=== PATIENT | female | born 1970 | race Caucasian/White ===

== ENCOUNTER → 2016-09-26 | Outpatient (CLI) | payer OTHER ==
--- NOTE | 2016-09-26 10:39 | XR ---
EXAMINATION TYPE: XR KUB DATE OF EXAM: 09/26/2016 9:45 AM COMPARISON: 03/29/2016 INDICATION: Renal stone TECHNIQUE: Single view abdomen FINDINGS: There is a normal bowel gas pattern. Psoas margins are normal. No organomegaly is present. Cholecystectomy clips are in the right upper quadrant. There is a 0.5 cm calcification over the mid t o superior pole left kidney. Additional suspicious calcifications are not identified. IMPRESSION: 1. Left mid 0.5 cm renal calcification.
== END | disposition home or self-care (01) ==
LOC: RADXRMAIN 09:25
PROVIDERS: ATTEND Urology
DX: N28.89 Other specified disorders of kidney and ureter (principal); R10.9 Unspecified abdominal pain
CPT/HCPCS: 74000

== ENCOUNTER → 2017-01-02 | Outpatient (CLI) | payer OTHER ==
--- NOTE | 2017-01-02 08:19 | US ---
EXAMINATION TYPE: US liver DATE OF EXAM: 01/02/2017 COMPARISON: 10/22/2014 CLINICAL HISTORY: Cirrhosis K74.69. GB removed x 2015 EXAM MEASUREMENTS: Liver Length: 20.7 cm CHD: 0.5 cm Right Kidney: 14.3 x 5.8 x 4.9 cm Pancreas: Tail obscured by overlying bowel gas Liver: Heterogenous. Echogenic. No focal lesions seen. Moderate fatty infiltration is present. C ranial caudal dimension is 20.7 cm. Gallbladder: Surgically absent Evidence for sonographic Tanner's sign: neg CHD: wnl Right Kidney: wnl IMPRESSION: 1. Limitation due to bowel gas. 2. Moderate fatty infiltration of the enlarged liver.
[2017-01-02 08:58] LABS: ALT 33 U/L (9-52); AST 22 U/L (14-36); Alkaline Phosphatase 114 U/L (38-126); Anion Gap 9 mmol/L; Blood Urea Nitrogen 10 mg/dL (7-17); Calcium 9.4 mg/dL (8.4-10.2); Carbon Dioxide 28 mmol/L (22-30); Chloride 102 mmol/L (98-107); Glucose 201 mg/dL (74-99); Non-African American GFR(MDRD) >60 (>60 ml/min/1.73 sqM); Sodium 139 mmol/L (137-145); Total Bilirubin 0.6 mg/dL (0.2-1.3); Total Protein 7.1 g/dL (6.3-8.2)
[2017-01-02 09:06] LABS: CH 31.2; CHCM 35.5; HCT 40.5 % (34.0-46.0); HDW 3.07; HGB 14.1 gm/dL (11.4-16.0); MCH 30.8 pg (25.0-35.0); MCHC 34.9 g/dL (31.0-37.0); MCV 88.3 fL (80.0-100.0); Mean Platelet Volume 7.5; RBC 4.59 m/uL (3.80-5.40); RDW 13.4 % (11.5-15.5); WBC 10.4 k/uL (3.8-10.6)
== END | disposition home or self-care (01) ==
LOC: RADUSWWP 07:20
DX: K76.0 Fatty (change of) liver, not elsewhere classified (principal)
CPT/HCPCS: 76705; 80053; 82105; 85027

== ENCOUNTER → 2017-03-01 | Outpatient (CLI) | payer OTHER ==
--- NOTE | 2017-03-01 10:31 | MM ---
Reason for exam: clinical finding. Last mammogram was performed 11 months ago. History: Patient is postmenopausal. Family history of breast cancer in mother at age 58 and breast cancer in maternal cousin. Benign excisional biopsy of the left breast, 2012. Benign excisional biopsy of the right breast, April 25, 2011. Benign US right guided VAD of the right breast, October 13, 2010. Took hormonal contraceptives for 6 months beginning at age 36. Took estrogen for 6 months. Physical Findings: Nurse Summary: 0.25cm nodule in the right breast (nuse dw). MG Diagnostic Mammo w CAD MEEK Bilateral CC, MLO, and XCCL view(s) were taken. Prior study comparison: March 20, 2016, bilateral MG screening mammo w CAD. March 18, 2015, bilateral MG diagnostic mammo w CAD MEEK. March 02, 2014, bilateral MG diagnostic mammo w CAD MEEK. The breast tissue is heterogeneously dense. This may lower the sensitivity of mammography. Finding: There are typically benign diffuse/scattered calcifications in both breasts. There is a chronic nodularity bilaterally. No significant changes in finding since March 20, 2016, March 18, 2015, and March 02, 2014. These results were verbally communicated with the patient and result sheet given to the patient on 03/01/17. ASSESSMENT: Incomplete: need additional imaging evaluation, BI-RAD 0 RECOMMENDATION: Ultrasound of the right breast.
--- NOTE | 2017-03-01 10:33 | USB ---
Reason for exam: additional evaluation requested from abnormal screening. History: Patient is postmenopausal. Family history of breast cancer in mother at age 58 and breast cancer in maternal cousin. Benign excisional biopsy of the left breast, 2012. Benign excisional biopsy of the right breast, April 25, 2011. Benign US right guided VAD of the right breast, October 13, 2010. Took hormonal contraceptives for 6 months beginning at age 36. Took estrogen for 6 months. US Breast Limited RT Right breast ultrasound demonstrates a 0.4 x 0.27 x 0.38cm lesion too small to characterize at 5 o'clock and duct ectasia at the nipple. These results were verbally communicated with the patient and result sheet given to the patient on 03/01/17. ASSESSMENT: Probably benign, BI-RAD 3 RECOMMENDATION: Ultrasound of the right breast in 3 months. (3-6 months)
== END | disposition home or self-care (01) ==
LOC: RADMAMWWP 08:41
PROVIDERS: ATTEND Surgery
DX: N63 Unspecified lump in breast (principal); R92.8 Other abnormal and inconclusive findings on diagnostic imaging of breast
CPT/HCPCS: 76642; G0204

== ENCOUNTER 2017-04-13 15:20 | Emergency (ER) | payer OTHER ==
[2017-04-13 15:24] VITALS: BP 197/85; PULSE 72; RESP 18; TEMP 98.5
--- NOTE | 2017-04-13 15:30 | ED ---
General Adult HPI - General Chief complaint: Eye Problems Stated complaint: Eye Problem Time Seen by Provider: 04/13/17 15:23 Source: patient, RN notes reviewed Mode of arrival: ambulatory Limitations: no limitations - History of Present Illness Initial comments: 46-year-old female sent to the emergency department chief complaint of stye to the right eye. Patient noticed this started this morning. She denies any pain irritation or drainage. She has a pustular injury. She denies any changes in vision. She was concerned due to the bottom so she thought that she should be evaluated. Patient denies any recent fever, chills, shortness of breath, chest pain, back pain, abdominal pain, nausea vomiting, numbness or tingling, dysuria or hematuria, constipation or diarrhea, headaches or visual changes, or any other current symptoms. - Related Data Home Medications Medication Instructions Recorded Confirmed Albuterol Sulfate [Ventolin HFA] 2 puff PO RT-Q6H PRN 01/05/14 04/13/17 Beclomethasone Dipropionate [Qvar 2 puff INHALATION RT-BID 01/05/14 04/13/17 80 mcg/puff] Levothyroxine Sodium [Synthroid] 50 mcg PO QAM 01/05/14 04/13/17 Lisinopril [Lisinopril] 10 mg PO DAILY 01/05/14 04/13/17 glipiZIDE [Glipizide] 5 mg PO QAM 01/05/14 04/13/17 metFORMIN HCL [Glucophage] 500 mg PO DAILY 03/26/14 04/13/17 glipiZIDE [Glucotrol] 2.5 mg PO HS 01/27/15 04/13/17 Naproxen 500 mg PO BID 09/21/15 04/13/17 HYDROcodone/APAP 7.5-325MG [[place] 1 tab PO BID 11/15/15 04/13/17 7.5-325] Sertraline [Zoloft] 50 mg PO DAILY 11/15/15 04/13/17 Albuterol Nebulized [Ventolin 2.5 mg INHALATION RT-Q6H PRN 03/14/16 04/13/17 Nebulized] Aspirin EC [Ecotrin Low Dose] 81 mg PO DAILY 03/14/16 04/13/17 Butalb/APAP/Caff 50-325-40Mg 1 tab PO BID PRN 03/14/16 04/13/17 [Fioricet 50-325-40] Dicyclomine HCl 10 mg PO BID PRN 03/14/16 04/13/17 Ibuprofen [Motrin] 800 mg PO Q8H PRN 03/14/16 04/13/17 Metoprolol Tartrate [Lopressor] 12.5 mg PO BID 03/14/16 04/13/17 Omeprazole [PriLOSEC] 40 mg PO DAILY 03/14/16 04/13/17 Ranitidine HCl 300 mg PO HS 03/14/16 04/13/17 Previous Rx's Medication Instructions Recorded Hydrocodone/Acetaminophen [[place] 1 each PO Q6HR PRN #20 tab 03/14/16 5-325] Ketorolac [Toradol] 10 mg PO Q6HR #20 tab 03/14/16 Ondansetron Odt [Zofran ODT] 4 mg PO Q8HR PRN #20 tab 03/14/16 Tamsulosin HCl [Flomax] 0.4 mg PO DAILY #10 cap 03/14/16 Allergies Allergy/AdvReac Type Severity Reaction Status Date / Time No Known Allergies Allergy Verified 04/13/17 15:24 Review of Systems ROS Statement: Those systems with pertinent positive or pertinent negative responses have been documented in the HPI. ROS Other: All systems not noted in ROS Statement are negative. Past Medical History Past Medical History: COPD, Diabetes Mellitus, Hyperlipidemia, Hypertension, Osteoarthritis (OA), Thyroid Disorder Additional Past Medical History / Comment(s): hx kidney stones, migraines, hx anemia, arthritis, personality/anxiety disorder History of Any Multi-Drug Resistant Organisms: None Reported Past Surgical History: Appendectomy, Breast Surgery, Cholecystectomy, Hysterectomy, Orthopedic Surgery Additional Past Surgical History / Comment(s): surgery left middle finger apputation, breast biopsies, desiree 03/02/15 Past Anesthesia/Blood Transfusion Reactions: No Reported Reaction Past Psychological History: Anxiety, Depression, PTSD Smoking Status: Former smoker Past Alcohol Use History: Rare Past Drug Use History: None Reported - Past Family History Mother Family Medical History: Cancer Additional Family Medical History / Comment(s): breast and lung ca Father Family Medical History: Deep Vein Thrombosis (DVT), Pulmonary Embolus General Exam Limitations: no limitations General appearance: alert, in no apparent distress Head exam: Present: atraumatic, normocephalic, normal inspection Eye exam: Present: PERRL, EOMI. Absent: normal appearance (There is appear to be a hordeolum to the right lower lid.), scleral icterus, conjunctival injection , periorbital swelling Pupils: Present: normal accommodation ENT exam: Present: normal exam, mucous membranes moist Neck exam: Present: normal inspection. Absent: tenderness, meningismus, lymphadenopathy Respiratory exam: Present: normal lung sounds bilaterally. Absent: respiratory distress, wheezes, rales, rhonchi, stridor Cardiovascular Exam: Present: regular rate, normal rhythm, normal heart sounds. Absent: systolic murmur, diastolic murmur, rubs, gallop, clicks Neurological exam: Present: alert, oriented X3 Psychiatric exam: Present: normal affect, normal mood Skin exam: Present: warm, dry, intact, normal color. Absent: rash Course Vital Signs 04/13/17 15:22 Temperature 98.5 F Pulse Rate 72 Respiratory 18 Rate Blood Pressure 197/85 O2 Sat by Pulse 98 Oximetry Medical Decision Making - Medical Decision Making 46. Presents for what appears to be a stye to the right eye. At this time we discussed care follow-up return parameters outpatient family's questions. He stated the Mani management plan. All questions have been answered. They' ll be discharged. Disposition Clinical Impression: Hordeolum of right eye Disposition: HOME SELF-CARE Condition: Stable Instructions: Raquel (ED) Additional Instructions: Please use medication as discussed. Please follow up with family doctor if symptoms have not improved over the next two days. Please return to the emergency room if your symptoms increase or worsen or for any other concerns. Referrals: Sachin Valdivia MD [Primary Care Provider] - 1-2 days Time of Disposition: 15:30
== END 2017-04-13 15:41 | disposition home or self-care (01) ==
LOC: EC 15:20
DX: H00.012 Hordeolum externum right lower eyelid (principal); J44.9 Chronic obstructive pulmonary disease, unspecified; E11.9 Type 2 diabetes mellitus without complications; M19.90 Unspecified osteoarthritis, unspecified site; I10 Essential (primary) hypertension; E07.9 Disorder of thyroid, unspecified; F32.9 Major depressive disorder, single episode, unspecified; F41.9 Anxiety disorder, unspecified; F43.10 Post-traumatic stress disorder, unspecified; Z86.2 Personal history of diseases of the blood and blood-forming organs and certain disorders involving the immune mechanism; Z87.891 Personal history of nicotine dependence; Z79.51 Long term (current) use of inhaled steroids; Z79.84 Long term (current) use of oral hypoglycemic drugs; Z79.1 Long term (current) use of non-steroidal anti-inflammatories (NSAID); Z79.891 Long term (current) use of opiate analgesic; Z79.82 Long term (current) use of aspirin; Z79.899 Other long term (current) drug therapy
CPT/HCPCS: 99283

== ENCOUNTER → 2017-04-20 | Outpatient (CLI) | payer OTHER ==
--- NOTE | 2017-04-20 11:33 | XR ---
EXAMINATION TYPE: XR foot limited RT DATE OF EXAM: 04/20/2017 COMPARISON: NONE HISTORY: Pain fourth digit radiating to ankle TECHNIQUE: 2 view right foot FINDINGS: Hallux valgus deformity is present. Joint spaces are otherwise preserved. There is mild sof t tissue prominence diffusely. Small plantar and Achilles tendon calcaneal heel spurs are present. IMPRESSION: 1. No acute osseous abnormality. 2. Suggestion of minimal soft tissue swelling. 3. Hallux valgus deformity.
== END | disposition home or self-care (01) ==
LOC: RADXRMAIN 10:22
PROVIDERS: ATTEND Internal Medicine
DX: M20.11 Hallux valgus (acquired), right foot (principal); M79.671 Pain in right foot

== ENCOUNTER → 2017-06-04 | Outpatient (CLI) | payer OTHER ==
--- NOTE | 2017-06-05 07:53 | USB ---
Reason for exam: follow-up at short interval from prior study. History: Patient is postmenopausal. Family history of breast cancer in mother at age 58 and breast cancer in maternal cousin. Benign excisional biopsy of the left breast, 2012. Benign excisional biopsy of the right breast, April 25, 2011. Benign US right guided VAD of the right breast, October 13, 2010. Took hormonal contraceptives for 6 months beginning at age 36. Took estrogen for 6 months. Physical Findings: Nurse Summary: pain and palpable x 3 months, pain "constant" palpable 0.5cm, hard, fixed (nurse ariel). US Breast RT Right breast ultrasound includes all four quadrants, the retroareolar region and axilla. Finding demonstrates a 0.4 x 0.4 x 0.2cm oval, hypoechoic lesion at 2 o'clock, probably tiny cyst, a 0.3 x 0.4 x 0.2cm oval, hyperechoic lesion at 2 o'clock, probably tiny lipoma, a 0.4 x 0.5 x 0.3cm oval, cystic lesion at 5 o'clock versus 4 x 4 x 3mm previously, benign, a 0.4 x 0.4 x 0.3cm oval, cystic lesion at 6 o'clock, duct ectasia at 7 o'clock, a 0.7 x 0.9 x 0.9cm oval, cystic lesion at 9 o'clock, largest of cluster, within are of the ducts are some peripheral calcifications which can be reassessed in 6 months, duct ectasia at 10 o'clock, a 0.5 x 0.7 x 0.5cm oval, hyperechoic lesion at 9 o'clock, a node at 8 o'clock, a 1.2 x 0.9 x 0.5cm oval, cyst cluster at 11 o'clock and duct ectasia at the nipple. These results were verbally communicated with the patient and result sheet given to the patient on 06/04/17. ASSESSMENT: Probably benign, BI-RAD 3 RECOMMENDATION: Ultrasound of the right breast in 6 months. (9 o'clock) Manage on a clinical basis with regard to brown nipple discharge. (Suspicious dischage would be clear or bloody spontaneous discharge localized to a single pore on the nipple).
== END | disposition home or self-care (01) ==
LOC: RADUSWWP 13:51
PROVIDERS: ATTEND Surgery
DX: N63.0 Unspecified lump in unspecified breast (principal)

== ENCOUNTER 2017-10-22 16:30 | Emergency (ER) | payer OTHER ==
[2017-10-22 16:46] VITALS: RESP 20; TEMP 97.6
[2017-10-22] MEDS ORDERED: IPRATROPIUM-ALBUTEROL 3 ML NEB INHALATION STA (17:01)
--- NOTE | 2017-10-22 17:18 | ED ---
URI HPI - General Chief Complaint: Upper Respiratory Infection Stated Complaint: Sore throat Time Seen by Provider: 10/22/17 16:43 Source: patient, RN notes reviewed, old records reviewed Mode of arrival: ambulatory Limitations: no limitations - History of Present Illness Initial Comments: This patient is a 47-year-old female with a history of cough and congestion for the past 3 weeks. She was initially started on azithromycin by her primary care provider. She then discontinued that and was started on Levaquin. She's been on Levaquin for the past week. She reports that her cough is continuing to persist. She also states that she now has a very sore throat. She came to emergency department for the worsening sore throat. She also finished a round of steroids. Patient's relates that she has had no recent fever or chills. She reports it's difficult for her to swallow due to the pain in her throat. She denies any significant productive cough at this time. But she does cough quite frequently. She also noted that she saw some white stuff in the back of her throat. - Related Data Home Medications Medication Instructions Recorded Confirmed Albuterol Sulfate [Ventolin HFA] 2 puff PO RT-Q6H PRN 01/05/14 04/13/17 Beclomethasone Dipropionate [Qvar 2 puff INHALATION RT-BID 01/05/14 04/13/17 80 mcg/puff] Levothyroxine Sodium [Synthroid] 50 mcg PO QAM 01/05/14 04/13/17 Lisinopril [Lisinopril] 10 mg PO DAILY 01/05/14 04/13/17 glipiZIDE [Glipizide] 5 mg PO QAM 01/05/14 04/13/17 metFORMIN HCL [Glucophage] 500 mg PO DAILY 03/26/14 04/13/17 glipiZIDE [Glucotrol] 2.5 mg PO HS 01/27/15 04/13/17 Naproxen 500 mg PO BID 09/21/15 04/13/17 HYDROcodone/APAP 7.5-325MG [[place] 1 tab PO BID 11/15/15 04/13/17 7.5-325] Sertraline [Zoloft] 50 mg PO DAILY 11/15/15 04/13/17 Albuterol Nebulized [Ventolin 2.5 mg INHALATION RT-Q6H PRN 03/14/16 04/13/17 Nebulized] Aspirin EC [Ecotrin Low Dose] 81 mg PO DAILY 03/14/16 04/13/17 Butalb/APAP/Caff 50-325-40Mg 1 tab PO BID PRN 03/14/16 04/13/17 [Fioricet 50-325-40] Dicyclomine HCl 10 mg PO BID PRN 03/14/16 04/13/17 Ibuprofen [Motrin] 800 mg PO Q8H PRN 03/14/16 04/13/17 Metoprolol Tartrate [Lopressor] 12.5 mg PO BID 03/14/16 04/13/17 Omeprazole [PriLOSEC] 40 mg PO DAILY 03/14/16 04/13/17 Ranitidine HCl 300 mg PO HS 03/14/16 04/13/17 Previous Rx's Medication Instructions Recorded Hydrocodone/Acetaminophen [[place] 1 each PO Q6HR PRN #20 tab 03/14/16 5-325] Ketorolac [Toradol] 10 mg PO Q6HR #20 tab 03/14/16 Ondansetron Odt [Zofran ODT] 4 mg PO Q8HR PRN #20 tab 03/14/16 Tamsulosin HCl [Flomax] 0.4 mg PO DAILY #10 cap 03/14/16 Levofloxacin [Levaquin] 750 mg PO DAILY #5 tab 10/22/17 predniSONE 50 mg PO DAILY #5 tablet 10/22/17 Allergies Allergy/AdvReac Type Severity Reaction Status Date / Time No Known Allergies Allergy Verified 10/22/17 16:43 Review of Systems ROS Statement: Those systems with pertinent positive or pertinent negative responses have been documented in the HPI. ROS Other: All systems not noted in ROS Statement are negative. Past Medical History Past Medical History: COPD, Diabetes Mellitus, Hyperlipidemia, Hypertension, Osteoarthritis (OA), Thyroid Disorder Additional Past Medical History / Comment(s): hx kidney stones, migraines, hx anemia, arthritis, personality/anxiety disorder History of Any Multi-Drug Resistant Organisms: None Reported Past Surgical History: Appendectomy, Breast Surgery, Cholecystectomy, Hysterectomy, Orthopedic Surgery Additional Past Surgical History / Comment(s): surgery left middle finger apputation, breast biopsies, desiree 03/02/15 Past Anesthesia/Blood Transfusion Reactions: No Reported Reaction Past Psychological History: Anxiety, Depression, PTSD Smoking Status: Former smoker Past Alcohol Use History: Rare Past Drug Use History: None Reported - Past Family History Mother Family Medical History: Cancer Additional Family Medical History / Comment(s): breast and lung ca Father Family Medical History: Deep Vein Thrombosis (DVT), Pulmonary Embolus General Exam - General Exam Comments Initial Comments: 47-year-old female. Alert and oriented. No distress. Limitations: no limitations General appearance: alert, in no apparent distress Head exam: Present: atraumatic, normocephalic, normal inspection Eye exam: Present: normal appearance, PERRL, EOMI. Absent: scleral icterus, conjunctival injection, periorbital swelling ENT exam: Present: normal exam, mucous membranes moist. Absent: normal oropharynx (Pharyngeal erythema. White exudates noted. Difficult to fully examine the patient had a very sensitive gag reflex.) Neck exam: Present: normal inspection. Absent: tenderness, meningismus, lymphadenopathy Respiratory exam: Present: normal lung sounds bilaterally, wheezes (mild wheeze noted. ). Absent: respiratory distress, rales, rhonchi, stridor Cardiovascular Exam: Present: regular rate, normal rhythm, normal heart sounds. Absent: systolic murmur, diastolic murmur, rubs, gallop, clicks GI/Abdominal exam: Present: soft, normal bowel sounds. Absent: distended, tenderness, guarding, rebound, rigid Extremities exam: Present: normal inspection, full ROM, normal capillary refill. Absent: tenderness, pedal edema, joint swelling, calf tenderness Back exam: Present: normal inspection Course Vital Signs 10/22/17 10/22/17 10/22/17 16:44 17:29 17:40 Temperature 97.6 F Pulse Rate 100 96 94 Respiratory 20 Rate Blood Pressure 175/87 O2 Sat by Pulse 96 Oximetry 10/22/17 18:41 Temperature Pulse Rate 96 Respiratory 20 Rate Blood Pressure 186/100 O2 Sat by Pulse 95 Oximetry Medical Decision Making - Medical Decision Making Patient is a 47-year-old female talking to Duong and for many weeks. Was initially started on a Z pack and then switch to Levaquin. This is her last day of Levaquin. She reports that her cough is getting worse and she has the worst sore throat. She does have a very red oropharynx. Cough is been on productive. Chest x-ray was normal. With a sore throat and persistent symptoms we did bloodwork. With blood cell count was within normal limits.She has been on steroids recently. Her strep test is negative. Heterophile is negative. Discuss at this time will put the patient on steroids and continue couple more days of Levaquin for her. She should follow up with primary care provider. All questions answered or return parameters were discussed. - Lab Data Result diagrams: 10/22/17 17:20 10/22/17 17:20 Lab Results 10/22/17 10/22/17 10/22/17 Range/Units 17:20 17:20 17:20 WBC 12.3 H (3.8-10.6) k/uL RBC 5.31 (3.80-5.40) m/uL Hgb 15.7 (11.4-16.0) gm/dL Hct 45.9 (34.0-46.0) % MCV 86.5 (80.0-100.0) fL MCH 29.6 (25.0-35.0) pg MCHC 34.2 (31.0-37.0) g/dL RDW 13.3 (11.5-15.5) % Plt Count 186 (150-450) k/uL Neutrophils % 72 % Lymphocytes % 19 % Monocytes % 3 % Eosinophils % 4 % Basophils % 1 % Neutrophils # 8.9 H (1.3-7.7) k/uL Lymphocytes # 2.4 (1.0-4.8) k/uL Monocytes # 0.4 (0-1.0) k/uL Eosinophils # 0.5 (0-0.7) k/uL Basophils # 0.1 (0-0.2) k/uL Sodium (137-145) mmol/L Potassium (3.5-5.1) mmol/L Chloride (98-107) mmol/L Carbon Dioxide (22-30) mmol/L Anion Gap mmol/L BUN (7-17) mg/dL Creatinine (0.52-1.04) mg/dL Est GFR (CKD-EPI)AfAm (>60 ml/min/1.73 sqM) Est GFR (CKD-EPI)NonAf (>60 ml/min/1.73 sqM) Glucose (74-99) mg/dL Calcium (8.4-10.2) mg/dL Total Bilirubin (0.2-1.3) mg/dL AST (14-36) U/L ALT (9-52) U/L Alkaline Phosphatase (38-126) U/L Total Protein (6.3-8.2) g/dL Albumin (3.5-5.0) g/dL Heterophile Antibody Negative (Negative) Group A Strep Rapid Negative (Negative) 10/22/17 Range/Units 17:20 WBC (3.8-10.6) k/uL RBC (3.80-5.40) m/uL Hgb (11.4-16.0) gm/dL Hct (34.0-46.0) % MCV (80.0-100.0) fL MCH (25.0-35.0) pg MCHC (31.0-37.0) g/dL RDW (11.5-15.5) % Plt Count (150-450) k/uL Neutrophils % % Lymphocytes % % Monocytes % % Eosinophils % % Basophils % % Neutrophils # (1.3-7.7) k/uL Lymphocytes # (1.0-4.8) k/uL Monocytes # (0-1.0) k/uL Eosinophils # (0-0.7) k/uL Basophils # (0-0.2) k/uL Sodium 138 (137-145) mmol/L Potassium 4.2 (3.5-5.1) mmol/L Chloride 97 L (98-107) mmol/L Carbon Dioxide 22 (22-30) mmol/L Anion Gap 19 mmol/L BUN 16 (7-17) mg/dL Creatinine 0.50 L (0.52-1.04) mg/dL Est GFR (CKD-EPI)AfAm >90 (>60 ml/min/1.73 sqM) Est GFR (CKD-EPI)NonAf >90 (>60 ml/min/1.73 sqM) Glucose 281 H (74-99) mg/dL Calcium 10.4 H (8.4-10.2) mg/dL Total Bilirubin 0.4 (0.2-1.3) mg/dL AST 32 (14-36) U/L ALT 45 (9-52) U/L Alkaline Phosphatase 114 (38-126) U/L Total Protein 7.2 (6.3-8.2) g/dL Albumin 4.3 (3.5-5.0) g/dL Heterophile Antibody (Negative) Group A Strep Rapid (Negative) - Radiology Data Radiology results: report reviewed Chest x-ray is negative for any acute process. Disposition Clinical Impression: Pharyngitis, Bronchitis Disposition: HOME SELF-CARE Condition: Good Instructions: Upper Respiratory Infection (ED) Additional Instructions: Continue breathing treatments. Take the medications as prescribed. Follow-up with primary care provider within next 2-3 days. Return to the emergency department if any alarming signs or symptoms occur. Prescriptions: Levofloxacin [Levaquin] 750 mg PO DAILY #5 tab predniSONE 50 mg PO DAILY #5 tablet Referrals: Sachin Valdivia MD [Primary Care Provider] - 1-2 days Time of Disposition: 18:29
[2017-10-22 17:39] LABS: Basophils # (A) 0.1 k/uL (0-0.2); Basophils % (A) 1 %; Eosinophils # (A) 0.5 k/uL (0-0.7); Eosinophils % (A) 4 %; HCT 45.9 % (34.0-46.0); HGB 15.7 gm/dL (11.4-16.0); Lymphocytes # (A) 2.4 k/uL (1.0-4.8); Lymphocytes % (A) 19 %; MCH 29.6 pg (25.0-35.0); MCHC 34.2 g/dL (31.0-37.0); MCV 86.5 fL (80.0-100.0); Mean Platelet Volume 8.1; Monocytes # (A) 0.4 k/uL (0-1.0); Monocytes % (A) 3 %; Neutrophils # (A) 8.9 k/uL (1.3-7.7); Neutrophils % (A) 72 %; Platelet Count 186 k/uL (150-450); RBC 5.31 m/uL (3.80-5.40); RDW 13.3 % (11.5-15.5); WBC 12.3 k/uL (3.8-10.6)
[2017-10-22 17:52] LABS: ALT 45 U/L (9-52); AST 32 U/L (14-36); Albumin 4.3 g/dL (3.5-5.0); Alkaline Phosphatase 114 U/L (38-126); Anion Gap 19 mmol/L; Blood Urea Nitrogen 16 mg/dL (7-17); Calcium 10.4 mg/dL (8.4-10.2); Carbon Dioxide 22 mmol/L (22-30); Chloride 97 mmol/L (98-107); Glucose 281 mg/dL (74-99); Potassium 4.2 mmol/L (3.5-5.1); Sodium 138 mmol/L (137-145); Total Bilirubin 0.4 mg/dL (0.2-1.3); Total Protein 7.2 g/dL (6.3-8.2)
--- NOTE | 2017-10-22 18:06 | XR ---
EXAMINATION TYPE: XR chest 2V DATE OF EXAM: 10/22/2017 COMPARISON: 08/07/2012 HISTORY: Chest pain TECHNIQUE: Frontal and lateral views of the chest are obtained. FINDINGS: Heart and mediastinum are normal. Lungs are clear. Diaphragm is normal. Bony thorax is int act. IMPRESSION: Normal chest. No change.
[2017-10-22 18:43] VITALS: BP 186/100; PULSE 96
== END 2017-10-22 18:42 | disposition home or self-care (01) ==
LOC: EC 16:30
DX: J40 Bronchitis, not specified as acute or chronic (principal); J02.9 Acute pharyngitis, unspecified; J44.9 Chronic obstructive pulmonary disease, unspecified; I10 Essential (primary) hypertension; E11.9 Type 2 diabetes mellitus without complications; M19.90 Unspecified osteoarthritis, unspecified site; E07.9 Disorder of thyroid, unspecified; F32.9 Major depressive disorder, single episode, unspecified; F41.9 Anxiety disorder, unspecified; F43.10 Post-traumatic stress disorder, unspecified; Z87.891 Personal history of nicotine dependence; Z79.1 Long term (current) use of non-steroidal anti-inflammatories (NSAID); Z79.51 Long term (current) use of inhaled steroids; Z79.82 Long term (current) use of aspirin; Z79.84 Long term (current) use of oral hypoglycemic drugs; Z79.899 Other long term (current) drug therapy; Z80.1 Family history of malignant neoplasm of trachea, bronchus and lung
CPT/HCPCS: 36415; 71046; 80053; 85025; 86308; 87081; 87430; 94640; 99284

== ENCOUNTER → 2017-10-23 | Outpatient (CLI) | payer OTHER ==
--- NOTE | 2017-10-23 08:13 | US ---
EXAMINATION TYPE: US liver DATE OF EXAM: 10/23/2017 COMPARISON: 01/02/2017 CLINICAL HISTORY: K74.60 Unspecified cirrhosis of the liver. EXAM MEASUREMENTS: Liver Length: 16.2 cm Gallbladder Wall: Surgically absent cm CBD: 0.6 cm Right Kidney: 12.9 x 4.3 x 5.3 cm Pancreas: visualized portions wnl Liver: difficult to penetrate, with diminished visualization of the portal triads. This is compatibl e with the patient's underlying known hepatocellular disease and limits evaluation for underlying hep atic masses although no discrete masses are seen on today's examination. There is also a nodular cont our noted such as on image [id number]. Gallbladder: Surgically absent CBD: wnl Right Kidney: No hydronephrosis or masses seen IMPRESSION: 1. Sonographic findings compatible with the patient's known hepatocellular disease/hepatic cirrhosis. Although coarsened hepatic echotexture limits evaluation for hepatic masses no focal masses are seen . 2. Surgical absence of the gallbladder.
== END | disposition home or self-care (01) ==
LOC: RADUSWWP 07:43
DX: R93.2 Abnormal findings on diagnostic imaging of liver and biliary tract (principal); Z90.49 Acquired absence of other specified parts of digestive tract
CPT/HCPCS: 76705

== ENCOUNTER → 2017-11-05 | Outpatient (CLI) | payer OTHER ==
--- NOTE | 2017-11-06 08:52 | MR ---
EXAMINATION TYPE: MR lumbar spine wo con DATE OF EXAM: 11/05/2017 9:46 PM COMPARISON: August 27, 2015. HISTORY: Low back pain Multiplanar, MultiSpin echo imaging of the lumbar spine was performed. L1-L2: Normal disc appearance without desiccation. No herniation, protrusion or disc bulging. No ca nal stenosis is present. Foramina are patent bilaterally. L2-L3: Normal disc appearance without desiccation. No herniation, protrusion or disc bulging. No ca nal stenosis is present. Foramina are patent bilaterally. L3-L4: Normal disc appearance without desiccation. No herniation, protrusion or disc bulging. No ca nal stenosis is present. Foramina are patent bilaterally. L4-L5: Mild disc desiccation noted. Stable right paracentral subligamentous disc herniation resulting in right lateral recess stenosis. Mild right foraminal encroachment. Facet joint arthropathy. L5-S1: Normal disc appearance without desiccation. No herniation, protrusion or disc bulging. No ca nal stenosis is present. Foramina are patent bilaterally. Lumbar segments are intact. No paraspinal masses are identified. Conus medullaris has a normal appe arance. Heterogenous bone marrow signal may reflect bone marrow reconversion. Correlate with CBC. IMPRESSION: 1. Bone marrow signal abnormality is stable. See above. 2. Stable right paracentral disc herniation at L4-5.
== END | disposition home or self-care (01) ==
LOC: RADMRIMAIN 20:57
PROVIDERS: ATTEND Psychiatry & Neurology Neurology
DX: M51.26 Other intervertebral disc displacement, lumbar region (principal); R93.7 Abnormal findings on diagnostic imaging of other parts of musculoskeletal system; Z88.2 Allergy status to sulfonamides
CPT/HCPCS: 72148

== ENCOUNTER → 2017-11-22 | Outpatient (CLI) | payer OTHER ==
--- NOTE | 2017-11-22 13:50 | USB ---
Reason for exam: follow-up at short interval from prior study. History: Patient is postmenopausal. Family history of breast cancer in mother at age 58 and breast cancer in maternal cousin. Benign excisional biopsy of the left breast, 2012. Benign excisional biopsy of the right breast, April 25, 2011. Benign US right guided VAD of the right breast, October 13, 2010. Took hormonal contraceptives for 6 months beginning at age 36. Took estrogen for 6 months. Physical Findings: Nurse Summary: 0.5cm small pea sized nodule right breast 6 o'clock (nurse mj). US Breast RT Right breast ultrasound includes all four quadrants, the retroareolar region and axilla. Finding demonstrates duct ectasia at 1 o'clock, 3 o'clock, 5 o'clock, 6 o'clock, 7 o'clock, 8 o'clock, 9 o'clock, 10 o'clock and at posterior nipple, a 0.5 x 0.5 x 0.3cm oval, mixed lesion at 2 o'clock similar to prior 2017, slightly hyperechoic, a 0.5 x 0.3 x 0.3cm oval, solid, hyperechoic lesion at 2 o'clock, similar in size, a 0.3 x 0.4 x 0.3cm oval, cystic lesion at 6 o'clock-unchanged palpable and cystic, calcifications at the 9 o'clock position appear similar to mammogram of 2014 for which a 6 month follow up is recommended, a 0.4 x 0.6 x 0.4cm oval, cystic lesion at 9 o'clock, a 0.9 x 1.0 x 0.6cm oval, complex cystic lesion at 9 o'clock that has grown but appears cystic, a 1.4 x 0.7 x 0.6cm oval, cystic cluster at 11 o'clock and a 0.6 x 0.3 x 0.5cm mixed lesion at 11 o'clock, likely small cluster of cysts. These results were verbally communicated with the patient and result sheet given to the patient on 11/22/17. ASSESSMENT: Probably benign, BI-RAD 3 RECOMMENDATION: Routine screening mammogram of both breasts in 3 months. Back on schedule for February 2018. Ultrasound of both breasts in 6 months.
== END | disposition home or self-care (01) ==
LOC: RADUSWWP 07:55
PROVIDERS: ATTEND Surgery
DX: R92.8 Other abnormal and inconclusive findings on diagnostic imaging of breast (principal)

== ENCOUNTER → 2018-03-06 | Outpatient (CLI) | payer OTHER ==
--- NOTE | 2018-03-07 07:21 | MM ---
Reason for exam: additional evaluation requested from prior study. Last mammogram was performed 1 year ago. History: Patient is postmenopausal. Family history of breast cancer in mother at age 58 and breast cancer in maternal cousin. Benign excisional biopsy of the left breast, 2012. Benign excisional biopsy of the right breast, April 25, 2011. Benign US right guided VAD of the right breast, October 13, 2010. Took hormonal contraceptives for 6 months beginning at age 36. Took estrogen for 6 months. Physical Findings: Nurse Summary: Less than a 1 cm nodule right breast at 6 o'clock. MG Diagnostic Mammo w CAD MEEK Bilateral CC and MLO view(s) were taken. LM and LM with magnification view(s) were taken of the right breast. Prior study comparison: March 01, 2017, bilateral MG diagnostic mammo w CAD MEEK. March 01, 2017, right breast US breast limited RT. March 20, 2016, bilateral MG screening mammo w CAD. March 18, 2015, bilateral MG diagnostic mammo w CAD MEEK. The breast tissue is heterogeneously dense. This may lower the sensitivity of mammography. There are benign round calcifications bilateral breast. New group of hetergeneous calcifications in the right anterior lower inner quadrant. Finding is new when compared to 2017. These results were verbally communicated with the patient and result sheet given to the patient on 03/06/18. ASSESSMENT: Suspicious, BI-RAD 4 RECOMMENDATION: Stereotactic core biopsy of the right breast. Called Dr. Vazquez with mammographic findings and has scheduled an appointment for the patient for 03/12/18 at 4:[address] Vazquez. PRELIMINARY REPORT CALLED AND FAXED TO DR. VAZQUEZ ON 03/06/18.
== END | disposition home or self-care (01) ==
LOC: RADMAMWWP 12:36
PROVIDERS: ATTEND Surgery
DX: R92.8 Other abnormal and inconclusive findings on diagnostic imaging of breast (principal)
CPT/HCPCS: 77066

== ENCOUNTER → 2018-03-21 | Day surgery (SDC) | payer OTHER ==
[2018-03-21 09:43] VITALS: RESP 16; BMI 39.6
[2018-03-21 11:20] VITALS: BP 146/91; PULSE 98; TEMP 98.1
--- NOTE | 2018-03-21 11:32 | P.PCN ---
Date of Procedure: 03/21/18 Preoperative Diagnosis: Abnormal mammogram right breast Postoperative Diagnosis: same Procedure(s) Performed: Right stereotactic breast biopsy with marker placement Anesthesia: local Surgeon: Celeste Vazquez Estimated Blood Loss (ml): 0 Pathology: other (breast tissue) Condition: stable Disposition: other (home) Indications for Procedure: Patient presented with abnormal mammogram with microcalcifications Operative Findings: The area of calcifications was adequately sampled Description of Procedure: The patient's taken to the stereotactic suite where the area of concern is identified and marked by the radiologist. The breast is then prepped. Local anesthetic is instilled into the skin and breast tissue. A skin divya is made. The needle is advanced the appropriate depth. Prefire films were obtained. The area of calcifications was somewhat obscured so a post fire film was not obtained. Multiple vacuum-assisted cores were then obtained. Specimen mammography showed the area of concern to been removed. A tissue marker is then placed and the needles withdrawn. Mammogram shows the marker to be in good placement. Pressure was held and the dressing was applied. I'll see her in the office for follow-up.
--- NOTE | 2018-03-21 12:31 | MM ---
Stereotactic core biopsy left breast. HISTORY: Microcalcifications. The calcifications in question within the left breast were targeted by the undersigned. The examination was performed by the surgeon. Specimen radiograph demonstrates numerous calcifications within the specimen submitted. Post procedural mammogram demonstrates appropriate deployment of radiopaque clip marker. The patient tolerated the procedure well and left the department in stable condition. Pathology results are pending. IMPRESSION: Successful stereotactic core biopsy left breast with pathology results pending. Pathology Results: Benign BREAST, RIGHT, STEREOTACTIC CORE BIOPSY: Nodular calcified fat necrosis with associated fibrosis and chronic inflammation. Negative for malignancy. Recommendation Follow up mammogram of the right breast in 6 months. CATHYD
== END | disposition home or self-care (01) ==
LOC: RADMAMWWP 09:17
PROVIDERS: ATTEND Surgery
DX: N64.1 Fat necrosis of breast (principal); N60.31 Fibrosclerosis of right breast; N61.0 Mastitis without abscess
CPT/HCPCS: 88305; 19081; A4648; J2001

== ENCOUNTER → 2018-05-21 | Outpatient (CLI) | payer OTHER ==
[2018-05-21 07:49] LABS: Basophils % (A) 1 %; Eosinophils # (A) 0.2 k/uL (0-0.7); Eosinophils % (A) 3 %; HCT 41.9 % (34.0-46.0); HGB 14.1 gm/dL (11.4-16.0); Lymphocytes % (A) 16 %; MCH 29.6 pg (25.0-35.0); MCHC 33.6 g/dL (31.0-37.0); Mean Platelet Volume 7.8; Monocytes # (A) 0.3 k/uL (0-1.0); Monocytes % (A) 5 %; Neutrophils # (A) 4.5 k/uL (1.3-7.7); Neutrophils % (A) 74 %; Platelet Count 157 k/uL (150-450); RBC 4.76 m/uL (3.80-5.40); RDW 13.3 % (11.5-15.5); WBC 6.1 k/uL (3.8-10.6)
[2018-05-21 08:15] LABS: ALT 44 U/L (9-52); AST 38 U/L (14-36); Albumin 3.7 g/dL (3.5-5.0); Alkaline Phosphatase 106 U/L (38-126); Anion Gap 10 mmol/L; Blood Urea Nitrogen 9 mg/dL (7-17); Carbon Dioxide 24 mmol/L (22-30); Chloride 104 mmol/L (98-107); Glucose 277 mg/dL (74-99); Potassium 4.1 mmol/L (3.5-5.1); Sodium 138 mmol/L (137-145); Total Bilirubin 0.8 mg/dL (0.2-1.3); Total Protein 6.6 g/dL (6.3-8.2)
--- NOTE | 2018-05-21 09:53 | US ---
EXAMINATION TYPE: US portal vein DATE OF EXAM: 05/21/2018 COMPARISON: US 10/23/2017 CLINICAL HISTORY: K74.60 UNSPECIFIED CIRRHOSIS OF LIVER. EXAM MEASUREMENTS: Liver Length: 20.1 cm Gallbladder Wall: Surgically absent CBD: 0.5 cm Right Kidney: 13.4 x 4.2 x 4.5 cm ANATOMY: Pancreas: Obscured by bowel gas, visualized portions wnl Liver: Attenuating, coarse echotexture correlating to the patient's underlying hepatocellular diseas e. Color flow patency within the portal vein: Yes Portal Vein Flow: Hepatopedal Gallbladder: Surgically absent Evidence for sonographic Tanner's sign: No CBD: wnl as visualized Right Kidney: No hydronephrosis, no cystic or solid mass visualized Ascites noted? No IMPRESSION: Sonographic patency of the portal vein with appropriate hepatopedal flow in a patient wit h underlying hepatocellular disease.
== END | disposition home or self-care (01) ==
LOC: RADUSWWP 06:46
DX: K76.9 Liver disease, unspecified (principal)
CPT/HCPCS: 80053; 82105; 85025; 93976

== ENCOUNTER → 2018-09-23 | Outpatient (CLI) | payer OTHER ==
--- NOTE | 2018-09-23 13:54 | MM ---
Reason for exam: follow-up at short interval from prior study. Last mammogram was performed 7 months ago. History: Patient is postmenopausal. Family history of breast cancer in mother at age 58 and breast cancer in maternal cousin. Benign MG stereo VAD BX RT of the right breast, March 21, 2018. Benign excisional biopsy of the left breast, 2012. Benign excisional biopsy of the right breast, April 25, 2011. Benign US right guided VAD of the right breast, October 13, 2010. Took hormonal contraceptives for 6 months beginning at age 36. Took estrogen for 6 months. Physical Findings: Nurse did not find any significant physical abnormalities on exam. MG Diagnostic Mammo RT w CAD CC, MLO, ML, and XCCL view(s) were taken of the right breast. Prior study comparison: March 06, 2018, bilateral MG diagnostic mammo w CAD MEEK. March 01, 2017, bilateral MG diagnostic mammo w CAD MEEK. March 20, 2016, bilateral MG screening mammo w CAD. March 18, 2015, bilateral MG diagnostic mammo w CAD MEEK. The breast tissue is heterogeneously dense. This may lower the sensitivity of mammography. Benign calcifications in the right breast. No suspicious abnormality. Right biopsy marker noted. These results were verbally communicated with the patient and result sheet given to the patient on 09/23/18. ASSESSMENT: Benign, BI-RAD 2 RECOMMENDATION: Routine screening mammogram of both breasts in 5 months. Back on schedule for February 2019.
== END | disposition home or self-care (01) ==
LOC: RADMAMWWP 12:24
PROVIDERS: ATTEND Surgery
DX: R92.8 Other abnormal and inconclusive findings on diagnostic imaging of breast (principal)
CPT/HCPCS: 77065

== ENCOUNTER → 2018-10-31 | Outpatient (CLI) | payer OTHER ==
[2018-10-31 16:21] LABS: Basophils % (A) 1 %; Eosinophils # (A) 0.2 k/uL (0-0.7); Eosinophils % (A) 2 %; HGB 15.1 gm/dL (11.4-16.0); Lymphocytes # (A) 2.2 k/uL (1.0-4.8); Lymphocytes % (A) 29 %; MCH 29.3 pg (25.0-35.0); MCHC 33.5 g/dL (31.0-37.0); MCV 87.5 fL (80.0-100.0); Mean Platelet Volume 8.3; Monocytes # (A) 0.4 k/uL (0-1.0); Monocytes % (A) 5 %; Neutrophils % (A) 63 %; Platelet Count 190 k/uL (150-450); RBC 5.15 m/uL (3.80-5.40); RDW 13.9 % (11.5-15.5); WBC 7.9 k/uL (3.8-10.6)
[2018-10-31 16:31] LABS: ALT 53 U/L (9-52); AST 41 U/L (14-36); Albumin 4.5 g/dL (3.5-5.0); Alkaline Phosphatase 123 U/L (38-126); Anion Gap 11 mmol/L; Blood Urea Nitrogen 11 mg/dL (7-17); Calcium 9.4 mg/dL (8.4-10.2); Carbon Dioxide 25 mmol/L (22-30); Chloride 102 mmol/L (98-107); Glucose 334 mg/dL (74-99); Sodium 138 mmol/L (137-145); Total Bilirubin 0.5 mg/dL (0.2-1.3); Total Protein 7.2 g/dL (6.3-8.2)
[2018-10-31 18:34] LABS: Appearance,Urine Clear (Clear); Bilirubin,Urine Negative (Negative); Blood,Urine Negative (Negative); Color,Urine Light Yellow; Glucose,Urine (UA) 4+ (Negative); Ketones,Urine Negative (Negative); Leukocyte Esterase,Urine Negative (Negative); Nitrite,Urine Negative (Negative); Protein,Urine Negative (Negative); Urobilinogen,Urine <2.0 mg/dL (<2.0)
[2018-10-31 21:45] LABS: Specific Gravity,Urine 1.015 (1.001-1.035)
--- NOTE | 2018-11-01 09:03 | CT ---
EXAMINATION TYPE: CT abdomen w con DATE OF EXAM: 10/31/2018 HISTORY: Epigastric pain x3 weeks CT DLP: 1886.60mGycm Automated Exposure Control for Dose Reduction was Utilized. CONTRAST: CT scan of the abdomen is performed with IV Contrast, patient injected with 100 mL of Isovue 300. COMPARISON: 03/14/2016 FINDINGS: LUNG BASES: No significant abnormality is appreciated. LIVER/GB: Hepatic parenchyma is diffusely hypoattenuated in comparison to that of the spleen, most co mmonly seen in hepatic steatosis. This finding limits evaluation for hepatic masses. No gross evidenc e of hepatic mass is seen. No intrahepatic biliary ductal dilatation. Gallbladder surgically absent PANCREAS: No significant abnormality is seen. SPLEEN: There is splenomegaly as the spleen measures 14.0 cm in craniocaudal dimension. ADRENALS: No significant abnormality is seen. KIDNEYS: Kidneys enhance and excrete symmetrically without hydronephrosis. BOWEL: There is soft tissue density within the cecum near the ileocecal valve with fluid-filled diste nded terminal ileum. No surrounding inflammatory change. Few scattered diverticula are seen of the po rtions of the visualized descending colon. Moderate amount retained colonic stool is noted. LYMPH NODES: No greater than 1cm abdominal or pelvic lymph nodes are appreciated. OSSEOUS STRUCTURES: Minimal degenerative changes of the spine. IMPRESSION: 1. Soft tissue density in the cecum appears to create ileocecal valve incompetence with fluid-filled prominent terminal ileum. Findings are concerning for cecal mass and could be further evaluated with colonoscopy or CT pelvis with contrast. 2. Moderate degree hepatic steatosis.
== END ==
LOC: RADCTMAIN 15:37
DX: K76.0 Fatty (change of) liver, not elsewhere classified (principal); M79.89 Other specified soft tissue disorders; K74.60 Unspecified cirrhosis of liver
CPT/HCPCS: 80053; 85025; 81003; 82105; 87086; 74160; 36415; Q9967

== ENCOUNTER → 2018-12-09 | Day surgery (SDC) | payer OTHER ==
[2018-12-05 12:09] VITALS: BMI 40.0
[~2018-12-09] MED LIST: LACTATED RINGERS 1,000 ML IV SCH; LIDOCAINE 1% INJ 10MG/ML (20 ML MDV) ONE; PROPOFOL 10 MG/ML 20 ML VIAL IV ONE
[2018-12-09 07:06] VITALS: TEMP 97.7
[2018-12-09 07:13] LABS: Glucose,Whole Blood 183 mg/dL (75-99)
--- NOTE | 2018-12-09 08:56 | P.PCN ---
Date of Procedure: 12/09/18 Description of Procedure: Brief history: Pleasant 48-year-old female with a known history of decompensated cirrhosis who was seen in the clinic for complaints of abdominal pain and altered bowel habits, with reports of loose nonbloody stool. Patient had CT imaging of the abdomen which could not rule out a possible cecal mass. The patient reports episodes of abdominal pain worse with eating. Procedure performed: Esophagogastroduodenoscopy with biopsy Colonoscopy with polypectomy and biopsy Estimated blood loss: Minimal. Preoperative diagnosis: Abdominal pain, history of cirrhosis, change in bowel habits, abnormal CT imaging of the colon Anesthesia: MAC Procedure: After informed consent was obtained from the patient was brought into the endoscopy unit and IV sedation was administered by anesthesia under continuous monitoring. Initially upper endoscopy was done. The Olympus GF 190 video endoscope was inserted inserted into the mouth and esophagus intubated without any difficulty and was gradually advanced into the stomach and duodenum and carefully examined. The bulb and second part of the duodenum appeared normal, with biopsies taken. The scope was then withdrawn into the stomach adequately insufflated with air and upon careful examination the antrum and body, cardia and fundus appeared grossly normal however there was diffuse erythema suggestive of portal hypertensive gastropathy with biopsies of the antrum and body taken. The scope was then withdrawn into the esophagus. A small hiatal hernia was noted. The GE junction was located at 40 cm to the incisors. It appeared regular with no erythema erosions or ulcerations or varices. Rest of the esophagus appeared normal. Patient tolerated the procedure well. At this time the patient continued to remain sedation. Initial digital rectal examination was normal. Olympus CF 190 video colonoscope was then inserted into the rectum and gradually advanced to the cecum without any difficulty. Careful examination was performed as the scope was gradually being withdrawn. The prep was good. The cecum, ascending colon, transverse colon, descending colon, sigmoid colon and rectum appeared normal, with random biopsies taken in the right colon, transverse colon and left colon in the setting of altered bowel movements. Diminutive 2 mm sessile sigmoid polyp removed with cold forcep. Mild scattered pandiverticulosis. Retroflexion was performed in the rectum and no lesions were noted, rectal varices and mild internal hemorrhoids seen. Patient tolerated the procedure well. Impression: 1. Hypertensive gastropathy, antrum and body biopsied. Small hiatal hernia. Duodenal biopsies. 2. Diminutive sigmoid colon removed with cold forceps. Mild pandiverticulosis. Rectal varices. Mild internal hemorrhoids. Recommendations: Findings of this examination were discussed with the patient as well as her [id number]. Okay to resume high-fiber diet. Sodium restricted diet given cirrhosis. Await pathology from biopsies. Follow up with gastroenterology as previously scheduled. Anticipate repeat colonoscopy in 5 years pending pathology from biopsies.
[2018-12-09 09:11] VITALS: BP 137/92; PULSE 79; RESP 16
[2018-12-09 09:11] LABS: Glucose,Whole Blood 171 mg/dL (75-99)
== END | disposition home or self-care (01) ==
LOC: ORWHC2ENDO 06:46
DX: K76.6 Portal hypertension (principal); K31.89 Other diseases of stomach and duodenum; K29.50 Unspecified chronic gastritis without bleeding; K74.60 Unspecified cirrhosis of liver; K64.8 Other hemorrhoids; K57.30 Diverticulosis of large intestine without perforation or abscess without bleeding; I86.8 Varicose veins of other specified sites; D12.5 Benign neoplasm of sigmoid colon; K44.9 Diaphragmatic hernia without obstruction or gangrene; Z90.49 Acquired absence of other specified parts of digestive tract; E78.5 Hyperlipidemia, unspecified; E11.9 Type 2 diabetes mellitus without complications; E07.9 Disorder of thyroid, unspecified; K21.9 Gastro-esophageal reflux disease without esophagitis; Z79.4 Long term (current) use of insulin; Z79.84 Long term (current) use of oral hypoglycemic drugs; Z79.899 Other long term (current) drug therapy; Z79.890 Hormone replacement therapy; Z79.891 Long term (current) use of opiate analgesic
CPT/HCPCS: 81025; 88305; 45380; 43239; J2001; J2704

== ENCOUNTER → 2019-05-07 | Outpatient (CLI) | payer OTHER ==
[2019-05-07 12:27] LABS: INR 0.9 (<1.2); Prothrombin Time 9.9 sec (9.0-12.0)
[2019-05-07 13:24] LABS: Basophils # (A) 0.1 k/uL (0-0.2); Basophils % (A) 2 %; Eosinophils # (A) 0.2 k/uL (0-0.7); Eosinophils % (A) 2 %; HCT 43.5 % (34.0-46.0); HGB 14.9 gm/dL (11.4-16.0); Lymphocytes # (A) 2.7 k/uL (1.0-4.8); Lymphocytes % (A) 36 %; MCH 29.9 pg (25.0-35.0); MCHC 34.3 g/dL (31.0-37.0); MCV 87.3 fL (80.0-100.0); Mean Platelet Volume 7.1; Monocytes # (A) 0.3 k/uL (0-1.0); Monocytes % (A) 5 %; Neutrophils % (A) 54 %; Platelet Count 175 k/uL (150-450); RBC 4.98 m/uL (3.80-5.40); RDW 12.9 % (11.5-15.5); WBC 7.5 k/uL (3.8-10.6)
[2019-05-07 18:41] LABS: African American GFR (CKD) 101.8 (60.0-200.0); Albumin 4.5 g/dL (3.80-4.90); Albumin/Globulin Ratio 2.25 (1.60-3.17); Anion Gap 7.1 mmol/L (4.00-12.00); BUN/Creat Ratio 13.75 Ratio (12.00-20.00); Calcium 9.2 mg/dL (8.7-10.3); Carbon Dioxide 25.9 mmol/L (21.6-31.8); Potassium 4.2 mmol/L (3.5-5.5); Total Bilirubin 0.4 mg/dL (0.3-1.2); Total Protein 6.5 g/dL (6.2-8.2)
== END | disposition home or self-care (01) ==
LOC: LABWHC1 10:54
PROVIDERS: ATTEND Physician Assistant
DX: K74.60 Unspecified cirrhosis of liver (principal)
CPT/HCPCS: 36415; 80053; 82105; 85025; 85610

== ENCOUNTER → 2019-05-07 | Outpatient (CLI) | payer OTHER ==
--- NOTE | 2019-05-07 11:35 | MM ---
Reason for exam: follow-up at short interval from prior study. Last mammogram was performed 7 months ago. History: Patient is postmenopausal. Family history of breast cancer in mother at age 58 and breast cancer in maternal cousin. Benign MG stereo VAD BX RT of the right breast, March 21, 2018. Benign excisional biopsy of the left breast, 2012. Benign excisional biopsy of the right breast, April 25, 2011. Benign US right guided VAD of the right breast, October 13, 2010. Took hormonal contraceptives for 6 months beginning at age 36. Took estrogen for 6 months. Physical Findings: Nurse did not find any significant physical abnormalities on exam. MG Diagnostic Mammo w CAD MEEK Bilateral CC and MLO view(s) were taken. CV view(s) were taken of the left breast. Prior study comparison: September 23, 2018, right breast MG diagnostic mammo RT w CAD. March 06, 2018, bilateral MG diagnostic mammo w CAD MEEK. The breast tissue is heterogeneously dense. This may lower the sensitivity of mammography. Finding: There are stable, fine, grouped/clustered calcifications on right axillary MLO. No significant changes in finding since September 23, 2018 and March 06, 2018. These results were verbally communicated with the patient and result sheet given to the patient on 05/07/19. ASSESSMENT: Benign, BI-RAD 2 RECOMMENDATION: Routine screening mammogram of both breasts in 1 year.
== END | disposition home or self-care (01) ==
LOC: RADMAMWWP 09:42
PROVIDERS: ATTEND Surgery
DX: R92.8 Other abnormal and inconclusive findings on diagnostic imaging of breast (principal)
CPT/HCPCS: 77066

== ENCOUNTER → 2020-01-16 | Outpatient (CLI) | payer OTHER ==
[2020-01-16 08:52] LABS: Basophils # (A) 0.1 k/uL (0-0.2); Basophils % (A) 1 %; Eosinophils # (A) 0.1 k/uL (0-0.7); Eosinophils % (A) 1 %; HCT 49.1 % (34.0-46.0); HGB 16.7 gm/dL (11.4-16.0); Lymphocytes # (A) 3.4 k/uL (1.0-4.8); Lymphocytes % (A) 28 %; MCH 30.1 pg (25.0-35.0); MCV 88.4 fL (80.0-100.0); Mean Platelet Volume 8.3; Monocytes # (A) 0.5 k/uL (0-1.0); Monocytes % (A) 4 %; Neutrophils # (A) 8.1 k/uL (1.3-7.7); Neutrophils % (A) 66 %; Platelet Count 228 k/uL (150-450); RBC 5.55 m/uL (3.80-5.40); WBC 12.2 k/uL (3.8-10.6)
[2020-01-16 08:57] LABS: Prothrombin Time 10.1 sec (9.0-12.0)
[2020-01-16 09:07] LABS: ALT 31 U/L (4-34); AST 20 U/L (14-36); African American GFR (CKD) >90 (>60 ml/min/1.73 sqM); Albumin 4.6 g/dL (3.5-5.0); Alkaline Phosphatase 132 U/L (38-126); Anion Gap 12 mmol/L; Blood Urea Nitrogen 18 mg/dL (7-17); Calcium 9.9 mg/dL (8.4-10.2); Carbon Dioxide 24 mmol/L (22-30); Chloride 101 mmol/L (98-107); Glucose 330 mg/dL (74-99); Non-African American GFR(CKD) >90 (>60 ml/min/1.73 sqM); Potassium 4.6 mmol/L (3.5-5.1); Sodium 137 mmol/L (137-145); Total Bilirubin 0.6 mg/dL (0.2-1.3); Total Protein 7.7 g/dL (6.3-8.2)
--- NOTE | 2020-01-16 15:09 | US ---
EXAMINATION TYPE: US abdomen limited DATE OF EXAM: 01/16/2020 COMPARISON: Ultrasound 10/23/2017 CLINICAL HISTORY: K74.60 Cirrhosis, nonalcoholic. GB removed EXAM MEASUREMENTS: Liver Length: 21.1 cm CBD: 0.6 cm Right Kidney: 11.6 x 4.7 x 4.4 cm Pancreas: Tail obscured by overlying bowel gas Liver: Appears echogenic, coarse and enlarged in size. Gallbladder: Surgically absent Evidence for sonographic Tanner's sign: neg CBD: wnl Right Kidney: No hydronephrosis or masses seen IMPRESSION: 1. Hepatomegaly with mild to moderate fatty infiltration..
== END | disposition home or self-care (01) ==
LOC: RADUSWWP 08:20
PROVIDERS: ATTEND Internal Medicine Gastroenterology
DX: R16.0 Hepatomegaly, not elsewhere classified (principal); K76.0 Fatty (change of) liver, not elsewhere classified; K74.60 Unspecified cirrhosis of liver
CPT/HCPCS: 76705; 80053; 82105; 85025; 85610

== ENCOUNTER → 2020-02-05 | Outpatient (CLI) | payer OTHER ==
--- NOTE | 2020-02-05 10:58 | MM ---
Reason for exam: clinical finding. Last mammogram was performed 9 months ago. History: Patient is postmenopausal. Family history of breast cancer in mother at age 58 and breast cancer in maternal cousin. Benign MG stereo VAD BX RT of the right breast, March 21, 2018. Benign excisional biopsy of the left breast, 2012. Benign excisional biopsy of the right breast, April 25, 2011. Benign US right guided VAD of the right breast, October 13, 2010. Took hormonal contraceptives for 6 months beginning at age 36. Took estrogen for 6 months. Physical Findings: Nurse Summary: 0.5cm nodule in the right breast at 5 o'clock (nurse mj). MG Diagnostic Mammo w CAD MEEK Bilateral CC and MLO view(s) were taken. XCCL and CV view(s) were taken of the right breast. Prior study comparison: May 07, 2019, bilateral MG diagnostic mammo w CAD MEEK. September 23, 2018, right breast MG diagnostic mammo RT w CAD. No significant new findings when compared with previous films. These results were verbally communicated with the patient and result sheet given to the patient on 02/05/20. ASSESSMENT: Incomplete: need additional imaging evaluation, BI-RAD 0 RECOMMENDATION: Ultrasound of the right breast.
--- NOTE | 2020-02-05 10:59 | USB ---
Reason for exam: additional evaluation requested from abnormal screening. History: Patient is postmenopausal. Family history of breast cancer in mother at age 58 and breast cancer in maternal cousin. Benign MG stereo VAD BX RT of the right breast, March 21, 2018. Benign excisional biopsy of the left breast, 2012. Benign excisional biopsy of the right breast, April 25, 2011. Benign US right guided VAD of the right breast, October 13, 2010. Took hormonal contraceptives for 6 months beginning at age 36. Took estrogen for 6 months. US Breast Limited RT Right limited breast ultrasound including focal area of concern, retroareolar and axilla demonstrates a 0.4 x 0.3 x 0.3cm cystic lesion at 5 o'clock. These results were verbally communicated with the patient and result sheet given to the patient on 02/05/20. ASSESSMENT: Benign, BI-RAD 2 RECOMMENDATION: Routine screening mammogram of both breasts in 1 year.
== END | disposition home or self-care (01) ==
LOC: RADMAMWWP 09:30
PROVIDERS: ATTEND Surgery
DX: N63.10 Unspecified lump in the right breast, unspecified quadrant (principal); R92.8 Other abnormal and inconclusive findings on diagnostic imaging of breast
CPT/HCPCS: 77066

== ENCOUNTER → 2020-05-03 | Outpatient (CLI) | payer OTHER ==
--- NOTE | 2020-05-03 18:56 | US ---
EXAMINATION TYPE: US pelvic complete DATE OF EXAM: 05/03/2020 COMPARISON: CT 10/31/2018 CLINICAL HISTORY: 49-year-old female Left lower R10.32 pain, Left flank pain R10.9. Uterus and left o vary surgically absent per patient TECHNIQUE: Transabdominal sonographic images of the pelvis were acquired. FINDINGS: EXAM MEASUREMENTS: Uterus: Surgically absent Right Ovary: Not visualized on this exam Left Ovary: Surgically absent 1. Uterus: Surgically absent 2. Endometrium: Surgically absent 3. Right Ovary: Not visualized on this exam 4. Left Ovary: Surgically absent 5. Bilateral Adnexa: wnl, large amount of peristalsing bowel visualized bilaterally. 6. Posterior cul-de-sac: wnl IMPRESSION: 1. Status post hysterectomy. Status post left oophorectomy. 2. The right ovary could not be visualized. 3. No pelvic free fluid. Peristalsing bowel visualized within the bilateral adnexa.
--- NOTE | 2020-05-03 19:01 | US ---
EXAMINATION TYPE: US kidneys/renal and bladder DATE OF EXAM: 05/03/2020 COMPARISON: CT 10/31/2018 CLINICAL HISTORY: 49-year-old female Left lower R10.32 pain, Left flank pain R10.9. EXAM MEASUREMENTS: Right Kidney: 16.7 x 5.2 x 5.7 cm Left Kidney: 13.3 x 4.7 x 4.3 cm No hydronephrosis on either side. Bladder: wnl as visualized Bilateral Jets seen: Yes Echogenic hepatic parenchyma. IMPRESSION: No hydronephrosis. Echogenic hepatic parenchyma suggesting fatty infiltration of the liver.
== END | disposition home or self-care (01) ==
LOC: RADUSWWP 14:13
PROVIDERS: ATTEND Internal Medicine
DX: R93.2 Abnormal findings on diagnostic imaging of liver and biliary tract (principal); R10.32 Left lower quadrant pain; Z90.710 Acquired absence of both cervix and uterus; Z90.721 Acquired absence of ovaries, unilateral
CPT/HCPCS: 76770; 76856

== ENCOUNTER → 2020-05-20 | Outpatient (CLI) | payer OTHER ==
[2020-05-20 10:18] LABS: African American GFR (CKD) >90 (>60 ml/min/1.73 sqM); Blood Urea Nitrogen 13 mg/dL (7-17); Non-African American GFR(CKD) >90 (>60 ml/min/1.73 sqM)
--- NOTE | 2020-05-20 14:10 | CT ---
EXAMINATION TYPE: CT abdomen pelvis w con DATE OF EXAM: 05/20/2020 COMPARISON: 10/31/2018 HISTORY: 49-year-old female pain bilateral lower quadrants TECHNIQUE: Contiguous axial scanning of the abdomen and pelvis following administration of 100 ml Iso demond 300 IV contrast. Delayed images through the kidneys and coronal/sagittal reconstructions perform ed. CT DLP: 2684.2 mGycm Automated exposure control for dose reduction was used. FINDINGS: Heart normal size without pericardial effusion. Lung bases clear without pleural effusion. Liver enlarged at 22.7 cm with diffuse low attenuation compatible with fatty infiltration. Portal radha ous system is patent. No biliary ductal dilatation. Cholecystectomy clips. Adrenal glands, kidneys, and pancreas within normal limits. Spleen enlarged at 14.1 cm on coronal series. No dilated small bowel, free fluid, or free air. No mesenteric or retroperitoneal lymphadenopathy. Oral contrast has progressed to the splenic flexure. There is mild stool burden. Circumferential wall thickening of the mid to distal sigmoid and rectum may be due to incomplete distention. No pericolon ic inflammatory change. Bladder is urine distended. Uterus surgically absent. Left-sided pelvic phleboliths. Right ovary is v isualized. Left ovary not clearly seen. No abnormal fluid collection in the pelvis or pelvic lymphade nopathy. Bones: Mild degenerative change of the hips. Facet arthropathy lower lumbar spine. Trace grade 1 ante rolisthesis L4-L5. IMPRESSION: 1. HEPATOMEGALY (22.7 CM) WITH HEPATIC STEATOSIS. 2. MILD SPLENOMEGALY OF 14.1 CM. 3. SOME CIRCUMFERENTIAL WALL THICKENING OF THE MID TO DISTAL SIGMOID AND RECTUM MAY BE DUE TO INCOMPL ETE DISTENTION OR NONSPECIFIC MILD COLITIS. CLINICALLY CORRELATE.
== END | disposition home or self-care (01) ==
LOC: RADCTMAIN 09:33
PROVIDERS: ATTEND Internal Medicine
DX: K76.0 Fatty (change of) liver, not elsewhere classified (principal); K63.89 Other specified diseases of intestine; R10.31 Right lower quadrant pain; R16.2 Hepatomegaly with splenomegaly, not elsewhere classified
CPT/HCPCS: 82565; 84520; 74177; 36415; Q9967

== ENCOUNTER 2021-06-28 12:24 | Emergency (ER) | payer OTHER ==
--- NOTE | 2021-06-28 14:59 | ED ---
General Adult HPI - General Chief complaint: Upper Respiratory Infection Stated complaint: watery eye/vomiting/cough Time Seen by Provider: 06/28/21 14:43 Source: patient Mode of arrival: ambulatory Limitations: no limitations - History of Present Illness Initial comments: Dictation was produced using [employer] dictation software. please excuse any gr ammatical, word or spelling errors. Chief Complaint: 50-year-old female presents to the emergency department for cough, watery eyes and vomiting History of Present Illness: Patient is a 50-year-old female she is vaccinated for covered. She received the vaccines earlier this year. Patient states that for the last week or so she's been having symptoms of watery eyes, dry cough and malaise. Patient states that she stays at home. She has multiple comorbidities including COPD, diabetes hypertension dyslipidemia. No obvious sick contacts. He denies any fevers. No abdominal pain. The ROS documented in this emergency department record has been reviewed and confirmed by me. Those systems with pertinent positive or negative responses have been documented in the HPI. All other systems are other negative and/or noncontributory. PHYSICAL EXAM: General Impression: Alert and oriented x3, not in acute distress HEENT: Normocephalic atraumatic, extra-ocular movements intact, pupils equal and reactive to light bilaterally, mucous membranes moist. Cardiovascular: Heart regular rate and rhythm Chest: Able to complete full sentences, no retractions, no tachypnea Musculoskeletal: no peripheral edema Motor: no focal deficits noted Neurological: CN II-XII grossly intact, no focal motor or sensory deficits noted Skin: Intact with no visualized rashes Psych: Normal affect and mood ED course: 50-year-old female presents to the emergency department for cough and associated constitutional symptoms. Heart rate on arrival was 112. Patient is not hypoxic. Patient guallpa virus positive. She is vaccinated. Discussed risk and benefits of monoclonal antibody effusion. Patient's agreeable. Observed in the emergency department after infusion. She is stable for discharge. - Related Data Home Medications Medication Instructions Recorded Confirmed Albuterol Sulfate [Ventolin HFA] 2 puff PO RT-Q6H PRN 01/05/14 04/08/19 Beclomethasone Dipropionate [Qvar 2 puff INHALATION RT-BID 01/05/14 04/08/19 80 mcg/puff] Levothyroxine Sodium [Synthroid] 50 mcg PO QAM 01/05/14 04/08/19 metFORMIN HCL [Glucophage] 1,000 mg PO BID 03/26/14 04/08/19 glipiZIDE [Glucotrol] 10 mg PO BID 01/27/15 04/08/19 Naproxen 500 mg PO BID 09/21/15 04/08/19 HYDROcodone/APAP 7.5-325MG [Lindsay 1 tab PO BID 11/15/15 04/08/19 7.5-325] Sertraline [Zoloft] 50 mg PO DAILY 11/15/15 04/08/19 Albuterol Nebulized [Ventolin 2.5 mg INHALATION RT-Q6H PRN 03/14/16 04/08/19 Nebulized] Dicyclomine HCl 10 mg PO BID PRN 03/14/16 04/08/19 Metoprolol Tartrate [Lopressor] 25 mg PO BID 03/14/16 04/08/19 Ranitidine HCl 300 mg PO HS 03/14/16 04/08/19 Aspirin/Acetaminophen/Caffeine 2 each PO BID PRN 03/15/18 04/08/19 [Excedrin Migraine Caplet] Insulin Glargine,Hum.rec.anlog 20 unit SQ HS 03/15/18 04/08/19 [Basaglar Kwikpen U-100] Oxybutynin Chloride [Ditropan] 5 mg PO BID 03/21/18 04/08/19 Verapamil HCl [Verapamil ER] 120 mg PO DAILY 03/21/18 04/08/19 Hydrocodone/Acetaminophen [Lindsay 1 tab PO Q12H 12/05/18 04/08/19 7.5-325] Insulin Lispro [Admelog] 100 unit SQ PC-TID PRN 12/05/18 04/08/19 Previous Rx's Medication Instructions Recorded Ondansetron Odt [Zofran ODT] 4 mg PO Q8HR PRN #20 tab 03/14/16 Tamsulosin HCl [Flomax] 0.4 mg PO DAILY #10 cap 03/14/16 Allergies Allergy/AdvReac Type Severity Reaction Status Date / Time No Known Allergies Allergy Verified 04/08/19 10:57 Review of Systems ROS Statement: Those systems with pertinent positive or pertinent negative responses have been documented in the HPI. ROS Other: All systems not noted in ROS Statement are negative. Past Medical History Past Medical History: COPD, Diabetes Mellitus, GERD/Reflux, Hyperlipidemia, Hypertension, Osteoarthritis (OA), Thyroid Disorder Additional Past Medical History / Comment(s): hx kidney stones, migraines, hx anemia, FATTY LIVER" History of Any Multi-Drug Resistant Organisms: None Reported Past Surgical History: Appendectomy, Breast Surgery, Cholecystectomy, Hysterectomy, Orthopedic Surgery Additional Past Surgical History / Comment(s): surgery left middle finger apputation, breast biopsies, Past Anesthesia/Blood Transfusion Reactions: No Reported Reaction Past Psychological History: Anxiety, Depression, PTSD Past Alcohol Use History: Rare Past Drug Use History: None Reported - Past Family History Mother Family Medical History: Cancer Additional Family Medical History / Comment(s): breast and lung ca Father Family Medical History: Deep Vein Thrombosis (DVT), Pulmonary Embolus General Exam Limitations: no limitations Course Vital Signs 06/28/21 13:02 Temperature 97.8 F Pulse Rate 112 H Respiratory 20 Rate Blood Pressure 160/75 O2 Sat by Pulse 97 Oximetry Medical Decision Making - Lab Data Lab Results 06/28/21 Range/Units 13:08 Coronavirus (PCR) Detected A (Not Detectd) Disposition Clinical Impression: COVID Disposition: HOME SELF-CARE Condition: Fair Instructions (If sedation given, give patient instructions): Coronavirus Disease 2019 (COVID-19) Is patient prescribed a controlled substance at d/c from ED?: No Referrals: Aidee Flowers MD [Primary Care Provider] - 1-2 days
[2021-06-28] MEDS ORDERED: SODIUM CHLORIDE 0.9% 50 ML IVPB ONE (15:30)
[2021-06-28] MEDS ORDERED: SOTROVIMAB (EUA) 500 MG in SODIUM CHLORIDE 0.9% 100 ML IVPB ONE (15:30)
[2021-06-28 17:22] VITALS: BP 134/76; PULSE 80; RESP 18; TEMP 98
== END 2021-06-28 17:22 | disposition home or self-care (01) ==
LOC: EC 12:24
DX: U07.1 COVID-19 (principal); J44.9 Chronic obstructive pulmonary disease, unspecified; E11.9 Type 2 diabetes mellitus without complications; E78.5 Hyperlipidemia, unspecified; I10 Essential (primary) hypertension; M19.90 Unspecified osteoarthritis, unspecified site; G43.909 Migraine, unspecified, not intractable, without status migrainosus; F41.9 Anxiety disorder, unspecified; F32.A Depression, unspecified; F43.10 Post-traumatic stress disorder, unspecified
CPT/HCPCS: 87635; 99284; Q0247

== ENCOUNTER → 2021-08-05 | Outpatient (CLI) | payer OTHER ==
[2021-08-05 13:52] LABS: Prothrombin Time 10.4 sec (9.0-12.0)
[2021-08-05 20:16] LABS: Basophils # (A) 0.05 X 10*3/uL (0.00-0.10); Basophils % (A) 0.6 %; Eosinophils # (A) 0.18 X 10*3/uL (0.04-0.35); Eosinophils % (A) 2.2 %; HCT 44.3 % (37.2-46.3); HGB 14.2 g/dL (12.0-15.0); Lymphocytes # (A) 2.53 X 10*3/uL (0.90-5.00); Lymphocytes % (A) 30.5 %; MCH 28.7 pg (27.0-32.0); MCHC 32.1 g/dL (32.0-37.0); MCV 89.5 fL (80.0-97.0); Monocytes # (A) 0.61 X 10*3/uL (0.20-1.00); Monocytes % (A) 7.3 %; Neutrophils # (A) 4.86 X 10*3/uL (1.80-7.70); Neutrophils % (A) 58.6 %; Platelet Count 203 X 10*3/uL (140-440); RBC 4.95 X 10*6/uL (4.10-5.20); RDW 13.2 % (11.5-14.5)
[2021-08-05 21:34] LABS: African American GFR (CKD) 119.4 (60.0-200.0); Albumin 4.3 g/dL (3.8-4.9); Albumin/Globulin Ratio 1.62 (1.60-3.17); Anion Gap 9.7 mmol/L (10.00-18.00); BUN/Creat Ratio 13.44 Ratio (12.00-20.00); Blood Urea Nitrogen 8.9 mg/dL (9.0-27.0); Calcium 9.4 mg/dL (8.7-10.3); Carbon Dioxide 27.1 mmol/L (20.0-27.5); Globulin 2.7 g/dL (1.6-3.3); Non-African American GFR(CKD) 103.1 (60.0-200.0); Potassium 4.4 mmol/L (3.5-5.5); Total Bilirubin 0.3 mg/dL (0.30-1.20); Uric Acid 3.1 mg/dL (2.9-7.7)
[2021-08-06 00:23] LABS: Erythrocyte Sedimentation Rate 13 mm/Hr (0-20)
[2021-08-06 04:12] LABS: DNA Double-Stranded NEGATIVE (NEGATIVE)
[2021-08-06 11:39] LABS: HLA B27 NEGATIVE
== END | disposition home or self-care (01) ==
LOC: LABWHC1 12:53
PROVIDERS: ATTEND Orthopaedic Surgery
DX: K74.60 Unspecified cirrhosis of liver (principal); M25.50 Pain in unspecified joint
CPT/HCPCS: 36415; 80053; 82105; 84550; 85025; 85610; 85652; 86038; 86225; 86431; 86812

== ENCOUNTER → 2021-08-05 | Outpatient (CLI) | payer OTHER ==
--- NOTE | 2021-08-05 19:20 | XR ---
EXAMINATION TYPE: XR chest 2V DATE OF EXAM: 08/05/2021 COMPARISON: 10/22/2017, 06/08/2021 HISTORY: 51-year-old female with cough TECHNIQUE: Frontal and lateral views FINDINGS: Heart normal size. Aorta and pulmonary vasculature within normal limits. Some strandy atelectasis in the lower lungs. Otherwise, no consolidation or pleural effusion. IMPRESSION: Some strandy left basilar atelectasis. Otherwise, no acute process seen.
== END | disposition home or self-care (01) ==
LOC: RADXRMAIN 12:38
PROVIDERS: ATTEND Internal Medicine
DX: J98.11 Atelectasis (principal)
CPT/HCPCS: 71046

== ENCOUNTER → 2021-10-17 | Outpatient (CLI) | payer OTHER ==
--- NOTE | 2021-10-17 10:11 | US ---
EXAMINATION TYPE: US liver DATE OF EXAM: 10/17/2021 COMPARISON: NONE CLINICAL HISTORY: 51-year-old female K74.60 CIRRHOSIS OF LIVER. TECHNIQUE: Multiple sonographic images of the right upper quadrant are obtained. FINDINGS: EXAM MEASUREMENTS: Liver Length: 19.9 cm Gallbladder: Surgically absent CBD: 0.4 cm Right Kidney: 13.0 x 4.6 x 5.8 cm Pancreas: Tail obscured by overlying bowel gas. Visualized portions show no gross organomegaly. Liver: attenuating, difficult to penetrate, decreased visualization as vessels, enlarged. No focal l esion seen. Gallbladder: Surgically absent Evidence for sonographic Tanner's sign: no CBD: wnl Right Kidney: No hydronephrosis. IMPRESSION: 1. At least moderate hepatic steatosis versus other hepatocellular disease. No focal lesion seen. 2. Status post cholecystectomy. No biliary ductal dilatation.
[2021-10-17 14:37] LABS: Basophils # (A) 0.08 X 10*3/uL (0.00-0.10); Basophils % (A) 0.9 %; Eosinophils # (A) 0.19 X 10*3/uL (0.04-0.35); Eosinophils % (A) 2.1 %; HCT 44.6 % (37.2-46.3); HGB 14.4 g/dL (12.0-15.0); Immature Grans, Automated 1.1 %; Lymphocytes # (A) 2.77 X 10*3/uL (0.90-5.00); MCH 29.4 pg (27.0-32.0); MCHC 32.3 g/dL (32.0-37.0); Mean Platelet Volume 11.1 fL (9.5-12.2); Monocytes # (A) 0.64 X 10*3/uL (0.20-1.00); Monocytes % (A) 6.9 %; NRBC Per 100 WBC 0 /100 WBCS (0.0-0.0); Neutrophils # (A) 5.45 X 10*3/uL (1.80-7.70); Platelet Count 202 X 10*3/uL (140-440); WBC 9.23 X 10*3/uL (4.50-10.00)
[2021-10-17 15:16] LABS: INR 0.89 (0.90-1.11); Prothrombin Time 10.1 sec (9.9-11.9)
[2021-10-17 15:17] LABS: African American GFR (CKD) 121.2 (60.0-200.0); Albumin 4.4 g/dL (3.8-4.9); Albumin/Globulin Ratio 1.84 (1.60-3.17); BUN/Creat Ratio 20.95 Ratio (12.00-20.00); Blood Urea Nitrogen 13.2 mg/dL (9.0-27.0); Calcium 9.4 mg/dL (8.7-10.3); Carbon Dioxide 23.2 mmol/L (20.0-27.5); Globulin 2.4 g/dL (1.6-3.3); Non-African American GFR(CKD) 104.6 (60.0-200.0); Potassium 4.3 mmol/L (3.5-5.5); Total Bilirubin 0.3 mg/dL (0.30-1.20); Total Protein 6.8 g/dL (6.2-8.2)
== END | disposition home or self-care (01) ==
LOC: RADUSWWP 07:50
PROVIDERS: ATTEND Internal Medicine Gastroenterology
DX: K74.60 Unspecified cirrhosis of liver (principal); Z90.49 Acquired absence of other specified parts of digestive tract
CPT/HCPCS: 76705; 80053; 82105; 85025; 85610

== ENCOUNTER → 2024-08-26 | Outpatient (CLI) | payer OTHER ==
[2024-08-26 10:58] LABS: Basophils # (A) 0.06 X 10*3/uL (0.00-0.10); Basophils % (A) 0.7 %; Eosinophils # (A) 0.17 X 10*3/uL (0.04-0.35); HCT 40.9 % (37.2-46.3); HGB 13.1 g/dL (12.0-15.0); Lymphocytes # (A) 2.97 X 10*3/uL (0.90-5.00); Lymphocytes % (A) 35.8 %; MCH 27.3 pg (27.0-32.0); MCV 85.4 FL (80.0-97.0); Mean Platelet Volume 11.3 FL (9.5-12.2); Monocytes # (A) 0.55 X 10*3/uL (0.20-1.00); Monocytes % (A) 6.6 %; NRBC Per 100 WBC 0 X 10*3/uL (0.00-0.01); Neutrophils # (A) 4.52 X 10*3/uL (1.80-7.70); Neutrophils % (A) 54.5 %; Platelet Count 220 X 10*3/uL (140-440); RBC 4.79 X 10*6/uL (4.10-5.20); RDW 14.2 % (11.5-14.5)
[2024-08-26 11:22] LABS: ALT 28 U/L (8-44); AST 24 U/L (13-35); Albumin 4.4 g/dL (3.8-4.9); Albumin/Globulin Ratio 1.91 Ratio (1.60-3.17); Alkaline Phosphatase 124 U/L (41-126); BUN/Creat Ratio 10.57 Ratio (12.00-20.00); Blood Urea Nitrogen 7.4 mg/dL (9.0-27.0); Calcium 9.4 mg/dL (8.7-10.3); Carbon Dioxide 21.2 mmol/L (21.6-31.8); Chloride 104 mmol/L (96-109); Globulin 2.3 g/dL (1.6-3.3); Glucose 141 mg/dL (70-110); Potassium 4.2 mmol/L (3.5-5.5); Sodium 142 mmol/L (135-145); Total Bilirubin 0.3 mg/dL (0.3-1.2); Total Protein 6.7 g/dL (6.2-8.2)
== END | disposition home or self-care (01) ==
LOC: LABWHC1 07:34
PROVIDERS: ATTEND Internal Medicine Gastroenterology
DX: K74.60 Unspecified cirrhosis of liver (principal)
CPT/HCPCS: 36415; 80053; 82105; 85025